=== PATIENT | male | born 1940 | race Two or more races ===

== ENCOUNTER 2024-04-30 06:46 | Emergency (ER) | payer OTHER ==
[~2024-04-30] VITALS: Ht 165.1 cm; Wt 60.3 kg
[2024-04-30] MEDS ORDERED: FERROCITE324 MG (07:17)
[2024-04-30] MEDS ORDERED: LAMICTAL100 MG (07:17)
[2024-04-30] MEDS ORDERED: PROTONIX40 MG (07:17)
[2024-04-30] MEDS ORDERED: DILTIAZEM 24HR240 MG (07:17)
[2024-04-30] MEDS ORDERED: GLUMETZA1000 MG (07:18)
[2024-04-30] MEDS ORDERED: ATORVASTATIN CA80 MG (07:18)
[2024-04-30] MEDS ORDERED: OLANZAPINE10 MG (07:18)
[2024-04-30] MEDS ORDERED: ARICEPT10 MG (07:18)
[2024-04-30] MEDS ORDERED: SPIRIVA RESPIMAT4 G1 (07:19)
[2024-04-30] MEDS ORDERED: ENULOSE10 GM/15 M (07:19)
[2024-04-30] MEDS ORDERED: NEURONTIN300 MG (07:19)
[2024-04-30] MEDS ORDERED: ELIQUIS5 MG (07:19)
[2024-04-30] MEDS ORDERED: PANTOPRAZOLE SODIUM 40 MG TABLET.DR PO ONE (09:00)
[2024-04-30 10:25] LABS: HEMATOCRIT 35.5 % (39.0-48.0); HEMOGLOBIN 12.1 g/dL (13-16.00); MEAN CORPUSCULAR HEMOGLOBIN 27.2 pg (27.00-32.0); PLATELET COUNT 206 K/uL (150-450); RED BLOOD COUNT 4.43 M/uL (4.00-6.00); RED CELL DISTRIBUTION WIDTH 17.8 % (11.5-14.5)
[2024-04-30] MEDS ORDERED: PREPARATION H26 GM TOP (10:52)
== END 2024-04-30 12:48 | disposition home or self-care (01) ==
LOC: ER 06:48
PROVIDERS: General Practice
DX: K64.9 Unspecified hemorrhoids (principal); I10 Essential (primary) hypertension; E11.9 Type 2 diabetes mellitus without complications; Z79.84 Long term (current) use of oral hypoglycemic drugs

== ENCOUNTER 2024-05-01 09:05 | Emergency (ER) | payer OTHER ==
[~2024-05-01] VITALS: Ht 165.1 cm; Wt 60.3 kg
[~2024-05-01 09:05] MED LIST: ARICEPT10 MG; ATORVASTATIN CA80 MG; DILTIAZEM 24HR240 MG; ELIQUIS5 MG; ENULOSE10 GM/15 M; FERROCITE324 MG; GLUMETZA1000 MG; LAMICTAL100 MG; NEURONTIN300 MG; OLANZAPINE10 MG; PREPARATION H26 GM TOP; PROTONIX40 MG; SPIRIVA RESPIMAT4 G1
[2024-05-01] MEDS ORDERED: 0.9 % SODIUM CHLORIDE 1,000 ML IV STA (09:50)
[2024-05-01] MEDS ORDERED: FAMOtidine 10 MG/ML (4ML VIAL) IV STA (09:51)
[2024-05-01] MEDS ORDERED: FAMOTIDINE/PF 20 MG/2 ML VIAL ONE (09:55)
[2024-05-01] MEDS ORDERED: ONDANSETRON HCL 2 MG/ML VIAL ONE (09:55)
[2024-05-01] MEDS ORDERED: ONDANSETRON HCL 2 MG/ML VIAL IV ONE (10:00)
[2024-05-01 10:27] LABS: HEMATOCRIT 33.8 % (39.0-48.0); HEMOGLOBIN 11.6 g/dL (13-16.00); MEAN CELL VOLUME 80.1 fL (80.0-100.00); MEAN CORPUSCULAR HEMOGLOBIN 27.4 pg (27.00-32.0); MEAN CORPUSCULAR HGB CONC 34.3 g/dl (32.0-36.0); PLATELET COUNT 204 K/uL (150-450); RED BLOOD COUNT 4.22 M/uL (4.00-6.00); RED CELL DISTRIBUTION WIDTH 18.1 % (11.5-14.5)
[2024-05-01 10:40] LABS: ALBUMIN 3.7 gm/dL (3.4-5.0); BILIRUBIN TOTAL 0.49 mg/dL (0.3-1.2); BILIRUBIN,CONJUGATED 0.14 mg/dL (0.0-0.2); BILIRUBIN,UNCONJUGATED 0.35 mg/dL (0.0-0.6); CALCIUM 9.8 mg/dL (8.5-10.1); CREATININE SERUM 1.2 mg/dL (0.70-1.30); GFR 57.96; POTASSIUM 4.08 mEq/L (3.5-5.1); TOTAL PROTEIN 7.1 gm/dL (6.4-8.2)
[2024-05-01 11:06] LABS: PH,URINE 7.5 (5.0-8.0); URINE APPEARANCE Clear; URINE BILIRRUBIN Negative (NEGATIVE); URINE BLOOD Negative; URINE COLOR Yellow; URINE GLUCOSE Negative (NEGATIVE); URINE KETONE Negative (NEGATIVE); URINE LEUKOCYTE Negative; URINE NITRATE Negative; URINE PROTEIN 30 (NEGATIVE); URINE UROBILINOGEN 0.2 E.U./dl
[2024-05-01 11:09] LABS: URINE BACTERIA 75.4 uL (0.0-1933); URINE RBC 15.7 uL (0.0-20.8); URINE WBC 13.8 uL (0.0-23.2)
[2024-05-01 12:16] LABS: URINE EPITHELIAL CELLS 0.7 uL (0.0-38.8)
== END 2024-05-01 13:04 | disposition home or self-care (01) ==
LOC: ER 09:05
PROVIDERS: General Practice
DX: K62.5 Hemorrhage of anus and rectum (principal); I69.320 Aphasia following cerebral infarction; I10 Essential (primary) hypertension; F02.80 Dementia in other diseases classified elsewhere, unspecified severity, without behavioral disturbance, psychotic disturbance, mood disturbance, and anxiety; Z95.1 Presence of aortocoronary bypass graft; Z89.422 Acquired absence of other left toe(s); E11.9 Type 2 diabetes mellitus without complications; Z79.84 Long term (current) use of oral hypoglycemic drugs; K59.00 Constipation, unspecified; F32.89 Other specified depressive episodes